=== PATIENT | female | born 1970 | race Caucasian/White ===

== ENCOUNTER 2024-02-23 07:47 | Emergency (ER) | payer BC, SELFPAY ==
[2024-02-23 07:50] VITALS: BP 164/91
[2024-02-23 08:10] LABS: % Basophils 0.6 % (0-2); % Eosinophils 1.6 % (0-6); % Immature Granulocytes 0.2 % (0-0.5); % Lymphocytes 34.3 % (20.5-51.1); % Monocytes 7.9 % (1.7-9.3); % Neutrophils 55.4 % (42.2-75.2); Absolute Eosinophils 0.1 10^3/uL (0-0.7); Absolute Lymphocytes 1.7 10^3/uL (1.2-3.4); Absolute Monocytes 0.4 10^3/uL (0.1-0.6); Absolute Neutrophils 2.7 10^3/uL (1.4-6.5); Hematocrit 41.6 % (37.0-47.0); Hemoglobin 13.5 g/dL (12.0-16.0); Mean Corp Hgb Conc. 32.5 g/dL (33.0-37.0); Mean Corpuscular Hgb 28.1 pg (27.0-31.0); Mean Corpuscular Volume 86.7 fL (81.0-99.0); Mean Platelet Volume 8.8 fL (7.4-10.4); Nucleated Red Blood Cells % 0 %; Platelet Count 382 10^3/uL (130-400); Red Cell Dist. Width 12.4 % (11.5-14.5); White Blood Cell Count 4.9 10^3/uL (4.8-10.8)
[2024-02-23 08:15] LABS: Urine Albumin Trace (Neg - Trace); Urine Bilirubin Negative (Negative); Urine Character Slightly Cloudy (Clear); Urine Color Yellow; Urine Glucose Negative (Negative); Urine Ketone Negative (Negative); Urine Leukocyte Trace (Negative); Urine Nitrite Negative (Negative); Urine Occult Blood Negative (Negative); Urine Urobilinogen Negative (Neg - 1+)
[2024-02-23 08:23] LABS: ALT (SGPT) 22 U/L (0-35); AST (SGOT) 25 U/L (14-36); Albumin 4.6 g/dl (3.5-5.0); Alkaline Phosphatase 64 U/L (38-126); Blood Urea Nitrogen 10 mg/dl (7-17); Calcium 9.3 mg/dl (8.4-10.2); Carbon Dioxide 26 mmol/L (22-30); Chloride 104 mmol/L (98-107); Glucose 126 mg/dl (70-99); Lipase 677 U/L (23-300); Potassium 4.2 mmol/L (3.5-5.1); Sodium 142 mmol/L (135-145); Total Bilirubin 0.7 mg/dl (0.2-1.3); Total Protein 7.8 g/dl (6.3-8.2); eGFR > 60.00
[2024-02-23 08:33] LABS: Urine Bacteria Moderate (Negative); Urine Red Blood Cell 0-2 /HPF (0-2); Urine Squamous Cell >30 /LPF (Few)
--- NOTE | 2024-02-23 08:51 | ED.GENMED ---
History of Present Illness
General
Chief Complaint: Abdominal Pain
Time Seen by Provider: 02/23/24 08:51
History of Present Illness
History of Present Illness:
TIME OF INITIAL ENCOUNTER: 8:55 AM
HPI: Patient presents with 4 days of right upper quadrant pain. However, she is also had pain similar to this in the past as well. She has had pain so severe when she was in [place] that she had to reschedule a flight. She has not had an
ultrasound in the past. She does not have any definitive diagnosis for this. The pain became more severe and went into the back today. She has loss of appetite today.
EXAM:
GENERAL: Well appearing but appears slightly uncomfortable
HEENT: Moist oral mucosa
CARDIOVASCULAR: No murmurs, normal heart rate, regular rhythm, No chest wall tenderness
PULMONARY: No respiratory distress, breath sounds are clear and equal
ABDOMEN: Soft with no peritoneal signs, no tenderness, specifically no epigastric/right upper quadrant tenderness
NEUROLOGIC: Excellent strength all extremities, no coordination deficits
PSYCHIATRIC: Appropriate mental status, normal insight and judgement
EXTREMITIES: Nontender, no edema, moves all extremities equally
SKIN: No rash, no lesions
NUMBER AND COMPLEXITY OF PROBLEMS ADDRESSED AT THE ENCOUNTER
� Chronic conditions affecting care: Denies any significant past medical history
� Acute Exacerbation and/or Progression of Chronic Illness: This is an acute problem
� Differential Diagnosis includes: Biliary colic, pancreatitis, musculoskeletal pathology, GERD less likely as the pain is primarily far lateral right
AMOUNT AND/OR COMPLEXITY OF DATA TO BE REVIEWED AND ANALYZED
� I performed an independent evaluation of and my interpretation is:
EKG:
CT:
X-rays:
Laboratory Studies: White count is normal at 4.9, hemoglobin normal, lipase is elevated at 677, normal LFTs, urinalysis shows slightly increased number of white cells but has greater than 30 squamous epithelial cells
Other: Ultrasound imaging shows no definite abnormality at the gallbladder
� Review of other/old records: No old records available for review
� Clinical information was obtained by an independent historian: None needed
� Prescriptions/Medications Considered but not given: Given the elevated lipase, I recommended IV fluids however the patient declined 'unless it is absolutely necessary'
� Further testing considered but not performed:
RISK OF COMPLICATIONS AND/OR MORBIDITY OR MORTALITY OF PATIENT MANAGEMENT
� Social determinants of health affecting care: Lives at home
� Discussion with other providers: I notified Dr. Harrell and asked him to see in follow-up as outpatient.
� Escalation of care including admission/observation vs risk of discharge considered: The patient has intermittent right upper quadrant pain now worsening and into the back. She declined IV fluids. Ultrasound has been ordered.
ANY OTHER UPDATES:
On reassessment prior to discharge, the patient remains to appear somewhat uncomfortable but declines any strong narcotic analgesia. She states she will take something at home for pain. Unclear etiology of symptoms. She does have pain that
worsens with certain position changes however she does not feel that this is muscular in nature.
Phy Exam
Physical Exam
Physical Exam:
See HPI
Course
Orders/Labs/Results
Orders:
Orders
02/23/24 08:00
Complete Blood Count/With Diff Urgent
Comprehensive Metabolic Panel Urgent
Lipase Urgent
Urinalysis Reflex To Culture Urgent
Date Specimen was Collected: 02/23/24
Time Specimen was Collected: 07:53
Urine Microscopic Reflex Cult Urgent
Urine Culture Urgent
PETER Source: U
Specimen Description:
Date Specimen was Collected: 02/23/24
Time Specimen was Collected: 07:53
02/23/24 08:52
US Abdomen Complete/Upper Urgent
Comment:
Reason For Exam: RUQ pain; normal LFTs, lipase 677
02/23/24 08:53
0.9% Sodium Chloride 1000 ml [Nss] 1,000 ml IV BOLUS
Abnormal Lab Results
02/23/24
08:00
MCHC 32.5 L g/dL
(33.0-37.0)
Glucose 126 H mg/dl
(70-99)
Lipase 677 H U/L
(23-300)
Leukocyte Esterase Rfl Trace A
(Negative)
Urine WBC (Reflex) 11-15 A /HPF
(0-5)
Urine Bacteria (Reflex) Moderate A
(Negative)
02/23/24 08:00
02/23/24 08:00
Vital Signs
Initial and Last Documented VS:
Initial Vital Signs
Temp Pulse Resp BP Pulse Ox
36.7 C 104 18 164/91 96
02/23/24 07:50 02/23/24 07:50 02/23/24 07:50 02/23/24 07:50 02/23/24 07:50
Last Documented Vital Signs
Temp Pulse Resp BP Pulse Ox
36.7 C 104 18 164/91 96
02/23/24 07:50 02/23/24 07:50 02/23/24 07:50 02/23/24 07:50 02/23/24 07:50
*Critical Care Note
Total Time (30-74mins, 75-104mins- exclusive of procedures): Not Applicable
ED Attending Note
-
Portions of this chart may have been created with voice recognition software.� Occasional wrong word or��sound alike� substitutions may have occurred due to the inherent limitations of voice recognition software.
Discharge Plan
Departure
Patient Disposition: Home (Routine Discharge)
Date of Disposition: 02/23/24
Time of Disposition: 12:22
Patient with high blood pressure during this ER visit?: Yes
Discharge Problem:
Abdominal pain
Instructions: Abdominal Pain, BLOOD PRESSURE
Referrals:
Jeremy Jones DO [Family Provider] -
Alban Harrell MD [Active] - Follow up in 5-7 days
Vinita Melissa, DO [Active] - Follow up in 5-7 days
Activity Restrictions/Additional Instructions:
I have given you the contact information for a GI surgeon, Dr. Harrell as well as a GI doctor, Dr. Melissa. I also recommend that you follow-up with your primary care doctor. Your white blood cell count was normal. Your liver numbers were
normal. Your lipase (pancreatitis test) was elevated 677 (top normal 300) however a true case of pancreatitis usually has lipase numbers in the thousands or tens of thousands. The urinalysis did not show any clear sign of infection but a urine
culture is pending. The ultrasound showed 'Gallbladder is somewhat difficult to visualize but appears within normal limits with no evidence for gallstones or gallbladder wall thickening. Negative sonographic Neff's sign. No evidence of biliary
ductal dilation.'
Interventions
Interventions:
*Risk Screen - Suicide Last Done: 02/23/24 07:50
*General Assessment Last Done: 02/23/24 07:50
*Neglect/Abuse Screening Last Done: 02/23/24 07:50
KZ-Vwnhkm-Lxiclcjzjh Assessment Last Done: 02/23/24 09:15
Discharge Date and Time
Print Language: SWEDISH
[2024-02-23 13:24] VITALS: BP 127/89
== END 2024-02-23 14:31 | disposition home or self-care (01) ==
LOC: EMR 07:47
PROVIDERS: Emergency Medicine; EMERGENCY PHYSICIAN Emergency Medicine; FAMILY PHYSICIAN Family Medicine
DX: R10.11 Right upper quadrant pain (principal); R63.0 Anorexia
CPT/HCPCS: 99284; 74176; 76700; 80053; 81003; 81015; 83690; 85025; 87086